=== PATIENT | male | born 1955 | race African-American/Black ===

== ENCOUNTER 2016-07-30 20:22 | Emergency (ER) | payer MEDICARE, OTHER ==
[~2016-07-30] VITALS: Ht 188 cm; Wt 81.6 kg
[2016-07-30 20:22] VITALS: BP 0/0
[2016-07-30] MEDS ORDERED: EPINEPHrine 1mg/10ml carp IV ONE (20:31)
[2016-07-30] MEDS ORDERED: Sodium Bicarbonate 8.4% 50ml Carp ONE (20:31)
--- NOTE | 2016-07-30 21:29 | Emergency Room Report ---
History of Present Illness General Chief Complaint: CPR Source: Family Member, EMS Present Illness HPI Patient was brought in by paramedics Patient was reported down at the home unresponsive patient had been given several rounds of epinephrine There was a LMA type airway in place by paramedics Upon arrival the patient does not have any pulses and CPR is in progress and continued Speaking to the family Patient had copious amounts of vomiting of blood over the past one to 2 days However did not want to go to the hospital Patient has been under chemotherapy for colon cancer With previous colon resection History of present illness otherwise continues to be significantly limited given the patient's critical presentation Allergies: Coded Allergies: No Known Allergies (Unverified , 07/30/16) Patient History Limited by: medical condition Past Medical History: see triage record Pertinent Family History: unable to obtain Reviewed Nursing Documentation: PMH: Agreed, PSxH: Agreed Nursing Documentation-PMH Past Medical History: No History, Except For Hx Cancer: Yes - COLON CANCER, RADIATION/CHEMO Review of Systems All Other Systems: limited - Other than the ones mentioned in the history of present illness all others are reviewed however they do stay limited due to the patient's mental status Physical Exam Vital Signs Date Time Temp Pulse Resp B/P Pulse Ox O2 Delivery O2 Flow Rate FiO2 07/30/16 19:55 0 0 0/ 0 Sp02 EP Interpretation: reviewed, abnormal - Patient was hypoxic 50% oxygenation, with skein dyer airway in place which has a low percentage General Appearance: other - Patient is unresponsive Head: normocephalic Eyes: bilateral eye other - Pupils are fixed and dilated at 6 mm bilaterally ENT: other - Patient has copious amounts of blood from the airway, ET tube was placed after suctioning through the vocal cords Neck: supple, other - However anteriorly the patient shows evidence of crepitus and expanding hematoma in the upper chest and neck area Respiratory: other - Patient has no respiratory effort, Cardiovascular #1: other - Patient is asystole, there is no cardiac activity Gastrointestinal: other - Patient has evidence of mid abdominal surgery no obvious expanding hematoma Musculoskeletal: other - Patient does not have any movement of the extremities there is no reflex or movement, Neurologic: other - GCS is 3T, no response Skin: other - Copious amounts of bleeding from the oral airway difficult to ascertain the exact etiology of the source, patient has evidence of previous abdominal surgery, Lymphatic: no adenopathy Procedures Critical Care Time Critical Care Time 20 minutes for initial critical presentation, not including any procedural time Discussion with family CPR/Code Blue CPR/Code Blue Narrative Please refer to the code sheet for full specifics Upon arrival, patient is asystole Require airway intubation CPR continued along with ACLS protocol Patient had several rounds of medications provided Sodium bicarbonate Glucose was somewhat low at 65 and was provided with glucose After further intervention Patient has already had fairly extensive input at the field Patient remained lifeless without any response Patient had ultrasound which showed no cardiac activity And the patient was pronounced at 20:07 Intubation Intubation : Consent: Emergent Intubation Method: orotracheal Tube Size (cm): 8.0 Breath Sounds after Intubation: equal Intubation Complications: no complications Post Intubation Xray: No Attempts: One Patient Tolerated: Well Complications: None Progress Upon airway intubation, copious suctioning was required at there was copious amounts of blood in the oral airway, the source is not clear Medical Decision Making Diagnostic Impression: Primary Impression: Cardiopulmonary arrest ER Course Upon arrival the patient had no pulses Patient was intubated And CPR/ACLS protocol continued Please refer to the code sheet for full specifics Patient essentially remained lifeless without any response After prolonged intervention an ultrasound evaluation patient remains lifeless And does not show any response to acute intervention All attempts were appearing to be futile And the patient was pronounced at 20:07 Last Vital Signs Date Time Temp Pulse Resp B/P Pulse Ox O2 Delivery O2 Flow Rate FiO2 07/30/16 19:55 0 0 0/ 0 Status: other Disposition: Condition: Critical JULIO C ARAIZA D.O. Jul 30, 2016 21:29
== END 2016-07-30 22:55 | disposition expired ==
LOC: EDBD 20:22 → EMR 20:30
DX: I46.9 Cardiac arrest, cause unspecified (principal); Z85.038 Personal history of other malignant neoplasm of large intestine
CPT/HCPCS: 31500; 92950; 96374; 96375; 99291; J0171